=== PATIENT | male | born 1965 | race Caucasian/White ===

== ENCOUNTER 2017-09-10 11:10 | Emergency (ER) | payer SELFPAY ==
[~2017-09-10] VITALS: Ht 177.8 cm; Wt 86.0 kg
[2017-09-10 11:27] VITALS: BP 124/88
== END 2017-09-10 12:43 | disposition home or self-care (01) ==
LOC: ED 12:37
DX: M19.012 Primary osteoarthritis, left shoulder (principal)
CPT/HCPCS: 99284